=== PATIENT | female | born 1970 | race Caucasian/White ===

== ENCOUNTER → 2022-08-25 | Outpatient (CLI) | payer BC ==
--- NOTE | 2022-08-25 16:23 | P.SLEEP ---
History of Present Illness DATE: 08/25/2022 CONSULTATION/NEW PATIENT EVALUATION HISTORY OF PRESENT ILLNESS/SLEEP-WAKE EVALUATION: 51-year-old lady had been evaluated in the sleep center for possible obstructive sleep apnea hypopnea syndrome. SLEEP SCHEDULE: Usually sleep schedule from 10:30 PM to 7 AM on weekdays and from 11 PM to 8 AM on weekend. FALLING ASLEEP: No problems with falling asleep, although patient used to lead in bedroom. DURING SLEEP: Patient usually sleeps on the back and side position with snoring and witnessed episodes of stop breathing during the sleep including recently during colonoscopy. No history of hypnogogical hallucinations, sleep paralysis, or cataplexy. DURING THE DAY/WAKE STATE: In the morning patient wake up tired, has difficulties to place attention, has problems with memory, concentration and depression. [place]itt sleepiness scale is 5. Patient may take 1 nap at 2 PM. PAST MEDICAL HISTORY: Hypertension, hyperlipidemia, sinuses problems, acid reflux, headaches, depression, anxiety. PAST SURGICAL HISTORY: Breast reduction surgery. MEDICATIONS: Metformin 1000 mg twice a day, atorvastatin 10 mg once a day, venlafaxine 150 mg once a day, metoprolol/hydrochlorothiazide 50-25 mg once a day, bupropion 150 mg once a day, Xanax 0.5 mg as needed, cyclobenzaprine 10 mg as needed. SOCIAL HISTORY: Negative for smoking, alcohol consumption occasional. FAMILY HISTORY: Heart problems, cancer, sleep apnea. REVIEW OF SYSTEMS: Snoring, awakenings from sleep. No fevers. No double vision. No recent chest pain. No shortness of breath. No abdominal pain. No bleeding episodes. No blood in urine. No seizure episodes. PHYSICAL EXAMINATION: GENERAL: A pleasant patient without any distress. VITAL SIGNS: BP 106/74 , HR 79 , RR 12 , weight 198.6 pounds, height 5 foot 5.5 inches, body mass index 32.4, temperature 98.4, oxygen saturation at room air 96% . HEENT: PERRLA, EOMI. Evaluation of oropharynx showed tongue protrudes midline, low position of soft palate Mallampati 4. NECK: Supple. No JVD. Thyroid is not palpable. 15.5 inches in circumference. LUNGS: Clear to percussion and to auscultation. Good air exchange. No wheezing or rhonchi. HEART: S1, S2 regular. No murmurs, gallops or rubs. ABDOMEN: Soft and nontender. Bowel sounds are present. No organomegaly appreciated. EXTREMITIES: No clubbing or cyanosis. RECORDING STUDIO INTERN: Awake, alert, and oriented x3. Cranial nerves 2 to 7 intact. There is no fasciculation or atrophy noted. No focal deficits observed. ASSESSMENT: 1. Snoring, witnessed episodes of stop breathing during the sleep, extremely low position of soft palate Mallampati 4. Obstructive sleep apnea-hypopnea syndrome. 2. Mild obesity body mass and is 32.4 3. Hypertension. 4. Hyperlipidemia. 5. Headaches. 6. Acid reflux. 7. History of depression. 8. History of anxiety. PLAN: 1. Home sleep apnea test . 2. CPAP/BiPAP titration if sleep study confirms obstructive sleep apnea- hypopnea syndrome. 3. Preferable position during sleep on the side. 4. No driving if patient feels any sleepiness. Patient is aware of civil and criminal liability for unsafe driving. 5. Sleep hygiene with regular sleep time for at least 7.5-8 hours. 6. Watching and losing weight. Thank you very much for referring this patient for consultation. Sincerely, David Holliday MD, PhD, FAASM. Diplomat of [place] [employer], Sleep Medicine Board by [place] [employer] [place] [employer] Chief Wellness Officer of [facility] - Sleep Note Sleep Note: Temperature: Pulse Rate: Respiratory Rate: Blood Pressure: SpO2: Height: Weight: BMI: Neck Circumference:
== END ==
LOC: 3 N SLEEP 15:43
PROVIDERS: ATTEND Internal Medicine
DX: G47.33 Obstructive sleep apnea (adult) (pediatric) (principal); I10 Essential (primary) hypertension; E78.5 Hyperlipidemia, unspecified; K21.9 Gastro-esophageal reflux disease without esophagitis; R51.9 Headache, unspecified; F32.A Depression, unspecified; F41.9 Anxiety disorder, unspecified; E66.9 Obesity, unspecified; Z99.89 Dependence on other enabling machines and devices; Z68.32 Body mass index [BMI] 32.0-32.9, adult
CPT/HCPCS: 99202

== ENCOUNTER → 2023-01-19 | Outpatient (CLI) | payer BC ==
--- NOTE | 2023-01-19 17:29 | P.PN ---
Subjective DATE: 01/19/2023 FOLLOW UP VISIT. Patient recently had a home sleep apnea test which documented obstructive sleep apnea hypopnea syndrome. Patient was started on treatment to with automatic CPAP unit treatment. Today is first visit after patient was started on treatment with CPAP equipment. I explained results of sleep study to the obed lopez in details. She feels significantly better after starting CPAP therapy relationship to her sleep and feeling during the day. Patient is using PAP equipment every night for the whole night, getting PAP supplies in time. The patient does not have significant problems related to the pressure. Patient has some problems with the water in the mask. Robert Lee sleepiness scale is 6, which is normal. I checked information from PAP unit. PAP unit pressure 5-13, average 12.8 cm H2O. Usage is 100 % for more then 4 hours, average 8 hours per night. Leak is 1.1 l/m, which is perfect. Apnea Hypopnea Index is 4.8, which is normal. MEDICATIONS:1. Metformin 1000 mg twice a day 2. Atorvastatin 10 mg once a day 3. Venlafaxine 150 mg once a day 4. Metoprolol/hydrochlorothiazide 50-25 mg once a day 5. Bupropion 150 mg once a day 6. Xanax 0.5 mg as needed During physical exam: GENERAL: A pleasant patient without any distress. VITAL SIGNS: BP 127/84, HR 72, RR 16 , weight 210.8, temperature 98.4, oxygen saturation at room air 97 % . HEENT: PERRLA, EOMI.low position of soft palate, Mallapati 4 . NECK: Supple. No JVD. LUNGS: Clear to percussion and to auscultation. Good air exchange. No wheezing or rhonchi. HEART: S1, S2 regular. ABDOMEN: Soft and nontender. Slightly obese EXTREMITIES: No clubbing or cyanosis. HIGH SCHOOL BAND TEACHER: Awake, alert, and oriented x3. No focal deficit. Impressions: 1. Obstructive sleep apnea-hypopnea syndrome. Patient demonstrated great compliance with treatment, benefiting from treatment. 2. Mild obesity patient increased her weight on 12 pounds comparing with previous visit. 3. Hypertension. 4. Hyperlipidemia. 5. Headaches. 6. Acid reflux. 7. History of depression. 8. History of anxiety. Plan: 1. Continue using PAP equipment every night for the whole night. I increased range of the pressure to the low 515 centimeters of water. 2. To change air filter at least 1-2 times per month. 3. PAP unit should stay lower then position of the head. 4. Advised patient to remove all remaining water from humidifier canister daily and make it dry after each usage. Refill canister with fresh distilled water before each usage. 5. Sleep hygiene with regular time in bed for at least 8 hours. 6. Precautions related to driving. No driving if feel any sleepiness. 7. I will maintain prescription for PAP supplies including mask, tube, filters. 8. Follow up visit in 6 months or earlier if patient has any problems. 9. Watching and losing weight. Thank you very much for allowing me to participate in the management of your patient. David Holliday MD, PhD, FAASM. Diplomat of [place] [employer], Sleep Medicine Board by [place] [employer] Lab Pack Chemist of [facility] [place]
== END ==
LOC: 3 N SLEEP 16:29
PROVIDERS: ATTEND Internal Medicine
DX: G47.33 Obstructive sleep apnea (adult) (pediatric) (principal); E66.9 Obesity, unspecified; I10 Essential (primary) hypertension; E78.5 Hyperlipidemia, unspecified; R51.9 Headache, unspecified; K21.9 Gastro-esophageal reflux disease without esophagitis; F32.A Depression, unspecified; F41.9 Anxiety disorder, unspecified; Z79.84 Long term (current) use of oral hypoglycemic drugs; Z79.899 Other long term (current) drug therapy; Z99.89 Dependence on other enabling machines and devices
CPT/HCPCS: 99212

== ENCOUNTER → 2023-08-17 | Outpatient (CLI) | payer BC ==
--- NOTE | 2023-08-17 17:19 | P.PROGSL ---
Subjective DATE: 08/17/2023 FOLLOW UP VISIT. Patient with obstructive sleep apnea hypopnea syndrome return to sleep center for follow-up visit. Information from previous visit have been reviewed. Patient is using PAP equipment every night for the whole night, getting PAP supplies in time. The patient does not have significant problems with the mask, PAP unit and humidification. Waka sleepiness scale is 7, which is normal. I checked information from PAP unit. PAP unit pressure 5-15, average 14.1 cm H2O. Usage is 100% for more then 4 hours, average 6.75 hours per night. Leak is 8.8 l/m, which is in acceptable range. Apnea Hypopnea Index is 3.0, which is normal, decreased comparing with previous visit after CPAP pressure was adjusted. MEDICATIONS: Please see below During physical exam: GENERAL: A pleasant patient without any distress. VITAL SIGNS: Please see below, weight 214 pounds. HEENT: PERRLA, EOMI.low position of soft palate, Mallapati 4 . NECK: Supple. No JVD. LUNGS: Clear to percussion and to auscultation. Good air exchange. No wheezing or rhonchi. HEART: S1, S2 regular. ABDOMEN: Soft and nontender.[] EXTREMITIES: No clubbing or cyanosis. ASSIGNMENT OFFICER: Awake, alert, and oriented x3. No focal deficit. Impressions: 1. Obstructive sleep apnea-hypopnea syndrome. Patient demonstrated great compliance with treatment, benefiting from treatment. 2. Mild obesity, BMI 35. 3. Hypertension. 4. Hyperlipidemia. 5. Acid reflux. 6. Headaches. 7. History of anxiety. 8. History of depression. Plan: 1. Continue using PAP equipment every night for the whole night. 2. To change air filter at least 1-2 times per month. 3. PAP unit should stay lower then position of the head. 4. Advised patient to remove all remaining water from humidifier canister daily and make it dry after each usage. Refill canister with fresh distilled water before each usage. 5. Sleep hygiene with regular time in bed for at least 8 hours. 6. Precautions related to driving. No driving if feel any sleepiness. 7. I will maintain prescription for PAP supplies including mask, tube, filters. 8. Watching and losing weight. 9. Follow up visit in 6 months or earlier if patient has any problems. Thank you very much for allowing me to participate in the management of your patient. David Holliday MD, PhD, FAASM. Diplomat of [place] [employer], Sleep Medicine Board by [place] [employer] Mapping Engineer of [facility] [place] Objective - Vital Signs Vital Signs: Vital Signs Temp 98.2 F 08/17/23 17:06 Pulse 72 08/17/23 17:06 Resp 16 08/17/23 17:06 BP 104/66 08/17/23 17:06 Pulse Ox 98 08/17/23 17:06 FiO2 Intake & Output 08/16/23 08/17/23 08/17/23 18:59 06:59 18:59 Weight 97.069 kg Home Medications: Home Medications Medication Instructions Recorded Confirmed Type ALPRAZolam [Xanax XR] 0.5 mg PO DAILY 08/17/23 08/17/23 History Atorvastatin [Lipitor] 10 mg PO DAILY 08/17/23 08/17/23 History Cyclobenzaprine [Flexeril] 10 mg PO DIRECTED PRN 08/17/23 08/17/23 History Metoprolol/Hydrochlorothiazide 50 mg PO DAILY 08/17/23 08/17/23 History [Lopressor Hct 50-25 mg Tab] Venlafaxine HCl ER [Effexor Xr] 150 mg PO DAILY 08/17/23 08/17/23 History buPROPion HCL [Wellbutrin XL] 150 mg PO DAILY 08/17/23 08/17/23 History metFORMIN HCL 1,000 mg PO BID 08/17/23 08/17/23 History
[2023-08-17 17:49] VITALS: BP 104/66; PULSE 72; RESP 16; TEMP 98.2
== END ==
LOC: 3 N SLEEP 16:44
PROVIDERS: ATTEND Internal Medicine
DX: G47.33 Obstructive sleep apnea (adult) (pediatric) (principal); E66.9 Obesity, unspecified; I10 Essential (primary) hypertension; E78.5 Hyperlipidemia, unspecified; K21.9 Gastro-esophageal reflux disease without esophagitis; R51.9 Headache, unspecified; Z68.35 Body mass index [BMI] 35.0-35.9, adult; Z99.89 Dependence on other enabling machines and devices; Z86.59 Personal history of other mental and behavioral disorders
CPT/HCPCS: 99212